=== PATIENT | female | born 1990 | race African-American/Black ===

== ENCOUNTER 2022-04-11 18:17 | Inpatient (IN) | payer MEDICAID ==
[~2022-04-11] VITALS: Ht 174 cm; Wt 148.3 kg
[2022-04-11] MEDS ORDERED: RHO(D) IMMUNE GLOBULIN 300 MCG/SYR IM PRN (19:00)
[2022-04-11] MEDS ORDERED: LANOLIN OINT 7GM TUBE TOP PRN (19:00)
[2022-04-11] MEDS ORDERED: IBUPROFEN 400MG TABLET PO PRN (19:00)
[2022-04-11] MEDS ORDERED: OXYTOCIN 30 UNITS/500ML NS PMX 500 ML IV SCH (19:00)
[2022-04-11] MEDS ORDERED: PREN1TAB78 PO (20:18)
[2022-04-11 20:55] VITALS: BP 109/59
[2022-04-11 20:55] LABS: HEMATOCRIT. 33.5 % (36.0-48.0); HEMOGLOBIN. 11.3 g/dL (12.0-16.0); MEAN CORPUSCULAR HEMOGLOBIN 29.4 pg (28.0-32.0); MEAN CORPUSCULAR VOLUME 86.9 fL (81.0-99.0); MEAN PLATELET VOLUME 9.9 fl (7.4-10.4); PLATELET 165 x1000/uL (130-400); RED BLOOD CELL COUNT 3.85 mill/uL (4.2-5.4); RED CELL DISTRIBUTION WIDTH 14.8 % (11.6-14.6)
[2022-04-11 20:58] LABS: INR 0.9; PARTIAL THROMBOPLASTIN TIME 29.2 sec (23.4-31.0); PROTHROMBIN TIME 10.2 sec (9.6-11.0)
[2022-04-11] MEDS: IBUPROFEN 800MG TABLET PO PRN (21:07)
[2022-04-11 21:11] LABS: CHLORIDE 107 mEq/L (98-107)
[2022-04-11 21:22] LABS: HEPATITIS B SURFACE ANTIGEN NEGATIVE
[2022-04-11 21:40] LABS: PLATELET ESTIMATE NORMAL
[2022-04-12 02:47] LABS: CLARITY URINE TURBID (CLEAR); COLOR URINE RED (YELLOW); KETONES URINE NEGATIVE (NEGATIVE); LEUKOCYTE ESTERASE URINE 2+ (NEGATIVE); NITRITE URINE NEGATIVE (NEGATIVE); OCCULT BLOOD URINE 3+ (NEGATIVE); PH URINE 6.5 (4.5-8.0); PROTEIN URINE 2+ (NEGATIVE); SPECIFIC GRAVITY URINE 1.018 (1.005-1.030); UROBILINOGEN URINE 0.2 E.U./dL (0.2-1.0)
[2022-04-12 03:45] VITALS: BP 124/68
[2022-04-12 03:49] LABS: *AMPHETAMINES SCREEN URINE NEGATIVE (NEGATIVE); *BARBITURATES SCREEN URINE NEGATIVE (NEGATIVE); *BENZODIAZEPINES SCREEN URINE NEGATIVE (NEGATIVE); *COCAINE SCREEN URINE NEGATIVE (NEGATIVE); CANNABINOID URINE SCREEN NEGATIVE (NEGATIVE); METHADONE URINE SCREEN NEGATIVE (NEGATIVE); OPIATES URINE SCREEN NEGATIVE (NEGATIVE); PHENCYCLIDINE URINE SCREEN NEGATIVE (NEGATIVE)
[2022-04-12] MEDS: IBUPROFEN 800MG TABLET PO PRN ×2 (05:41→22:19)
[2022-04-12 07:10] LABS: BASOPHILS % 0.2 % (0.0-2.0); EOSINOPHILS % 0.7 % (0.0-5.0); HEMATOCRIT. 27.6 % (36.0-48.0); HEMOGLOBIN. 9.5 g/dL (12.0-16.0); LYMPHOCYTES % 14.1 % (20.0-50.0); MEAN CORPUSCULAR HEMOGLOBIN 29.6 pg (28.0-32.0); MEAN CORPUSCULAR VOLUME 86.1 fL (81.0-99.0); MEAN PLATELET VOLUME 9.6 fl (7.4-10.4); MONOCYTES % 7.4 % (2.0-8.0); NEUTROPHILS % 77.6 % (40.0-76.0); PLATELET 158 x1000/uL (130-400); RED CELL DISTRIBUTION WIDTH 14.7 % (11.6-14.6)
[2022-04-12 08:00] VITALS: BP 100/48
[2022-04-12] MEDS ORDERED: PRENATAL VIT/FE FUMARATE/FA TABLET PO SCH (09:00)
[2022-04-12 16:00] VITALS: BP 100/45
[2022-04-12 19:30] VITALS: BP 108/69
[2022-04-13 04:00] VITALS: BP 98/55
[2022-04-13 08:00] VITALS: BP 101/43
[2022-04-13] MEDS ORDERED: IBUP-2030 PO (08:45)
== END 2022-04-13 14:02 | disposition home or self-care (01) | DRG 561 ==
LOC: 8 EST LDRP 18:17 → EDBD 18:17 → OBSVTOIN 18:17 → 8EST 20:55
PROVIDERS: ADMIT Obstetrics & Gynecology; ATTEND Obstetrics & Gynecology
DX: O72.0 Third-stage hemorrhage (principal); D62 Acute posthemorrhagic anemia; Z20.822 Contact with and (suspected) exposure to COVID-19; O90.81 Anemia of the puerperium
CPT/HCPCS: 36415; 80053; 80305; 81003; 85025; 86592; 86703; 86762; 86850; 86900; 87340; 87426; 88307; 99281; J2590